=== PATIENT | female | born 1990 | race Caucasian/White ===

== ENCOUNTER 2021-10-24 22:58 | Emergency (ER) | payer OTHER ==
[~2021-10-24] VITALS: Ht 154.9 cm; Wt 86.2 kg
[2021-10-24 23:12] VITALS: BP 103/78
--- NOTE | 2021-10-24 23:18 | NUR ---
TO LOBBY FOLLOWING TRIAGE
--- NOTE | 2021-10-24 23:42 | NUR ---
PT TAKEN TO BED 2
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
[2021-10-24] MEDS: ACETAMINOPHEN EXTRA STRENGTH 500 MG TAB PO ONE (23:55)
[2021-10-25 00:01] LABS: BASOPHILS # (AUTO) 0.1 K/uL (0.00-0.22); BASOPHILS % (AUTO) 0.6 % (0.0-2.0); EOSINOPHILS # (AUTO) 0.1 K/uL (0-0.4); EOSINOPHILS % (AUTO) 1.1 % (0.0-4.0); HEMATOCRIT 44.7 % (36-48); LYMPHOCYTES # (AUTO) 2.1 K/uL (2.5-16.5); LYMPHOCYTES % (AUTO) 20.3 % (20.5-51.1); MEAN CORPUSCULAR HEMOGLOBIN 29 pg (27-31); MEAN CORPUSCULAR HGB CONC 34 g/dL (33-37); MEAN CORPUSCULAR VOLUME 87.8 fL (80-94); MONOCYTES # (AUTO) 0.4 K/uL (0.8-1.0); MONOCYTES % (AUTO) 3.7 % (1.7-9.3); NEUTROPHILS # (AUTO) 7.8 K/uL (1.8-7.7); NEUTROPHILS % (AUTO) 74.3 % (42.2-75.2); PLATELET COUNT (AUTO) 299 K/uL (140-450); RED BLOOD CELL COUNT(AUTO) 5.09 MIL/uL (4.20-5.40); RED CELL DISTRIBUTION WIDTH 13.8 % (11.6-13.7); WHITE BLOOD COUNT (AUTO) 10.5 K/uL (4.8-10.8)
[2021-10-25 00:34] LABS: ALBUMIN 4.2 g/dL (3.4-5.0); ANION GAP 13.9 (8-16); CARBON DIOXIDE 24.9 mmol/L (21-32); CREATININE 0.7 mg/dL (0.6-1.3); POTASSIUM 3.8 mmol/L (3.5-5.1); TOTAL BILIRUBIN 0.5 mg/dL (0.0-1.0)
--- NOTE | 2021-10-25 00:47 | NUR ---
pt to ct via wheelchair
--- NOTE | 2021-10-25 01:24 | NUR ---
pt reports pain is ongoing, no improvement. ermd aware.
[2021-10-25] MEDS: KETOROLAC 30 MG/ML VIAL IVP ONE (01:30)
--- NOTE | 2021-10-25 02:01 | NUR ---
pt reports feeling better, pain improvement, no nausea. awaiting ct results. .
--- NOTE | 2021-10-25 03:16 | NUR ---
pt appears to be resting w eyes closed, breathing and unlabored will continue to monitor.
--- NOTE | 2021-10-25 03:27 | NUR ---
Pt report given to madhu whitaker. Transfer of care at this time.
[2021-10-25] MEDS ORDERED: NAPR-1704 PO ×2 (06:26→20:16)
[2021-10-25] MEDS ORDERED: LID5T TP ×2 (06:26→20:16)
--- NOTE | 2021-10-25 06:35 | NUR ---
IV removed, catheter intact and site benign. Applied folded 4x4 gauze and tape to stop bleeding.
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
[2021-10-25 06:38] VITALS: BP 95/47
== END 2021-10-25 06:37 | disposition home or self-care (01) ==
LOC: MED 22:58
DX: R07.89 Other chest pain (principal); V29.9XXA Motorcycle rider (driver) (passenger) injured in unspecified traffic accident, initial encounter; Y93.89 Activity, other specified; Y92.410 Unspecified street and highway as the place of occurrence of the external cause; Y99.8 Other external cause status
CPT/HCPCS: 36415; 70450; 71260; 72125; 74177; 80053; 84703; 85025; 90471; 90715; 96374; 99285; J1885; Q9967